=== PATIENT | male | born 1970 | race Caucasian/White ===

== ENCOUNTER 2021-03-03 08:28 | Inpatient (IN) | payer MEDICARE, OTHER ==
[~2021-03-03] VITALS: Ht 180.3 cm; Wt 158.6 kg
--- NOTE | 2021-03-03 08:57 | ED General ---
General Chief Complaint: Cough/Cold/Flu Symptoms Stated Complaint: COUGH; LOW O2 Source of Information: Patient History of Present Illness Date Seen by Provider: Mar 03, 2021 Time Seen by Provider: 08:32 Initial Comments 50-year-old male presenting with complaints of cough and shortness of breath. He states he has had nausea all night as well. He has been around his daughters who have been sick since last week. He started getting sick yesterday. He had tried using Flonase and states that ever since then he has been sick. He has been coughing and short of breath. He had no fever but has had chills all night. He states that his daughters were tested last week for strep throat and Covid but were negative. He had gone to urgent care this morning and they told him his oxygen level was low and he had to come to the emergency department. He states he recently moved here and has not established with a primary care physician. He does have a history of obesity and hypertension. He is not currently taking any medications. He does report having a history of pneumonia that he believes he contracted because of using an inhaler for asthma. He denies any allergies to medications. Timing/Duration: 1 Day Severity: Moderate Modifying Factors: worse with Movement Associated Systoms: No Chest Pain; Cough; No Diaphoresis; Fever/Chills (no fever but having chills); No Headaches; Malaise, Nausea/Vomiting (nausea but no vomiting); No Rash, No Seizure; Shortness of Air; No Syncope, No Weakness Allergies and Home Medications Allergies Coded Allergies: No Known Drug Allergies (Unverified , 03/03/21) Patient Home Medication List Home Medication List Reviewed: Yes Hydrocodone/Acetaminophen (Hydrocodone-Acetamin 10-325 mg) 1 Each Tablet, 1 EACH PO QID PRN for PAIN-MODERATE (5-7), (Reported) Entered as Reported by: YANG FLORES on 03/03/21 4371 Last Action: Reviewed Review of Systems Review of Systems Constitutional: chills; No fever EENTM: nose congestion; No epistaxis Respiratory: cough, dyspnea on exertion, phlegm, short of breath; No stridor; wheezing Cardiovascular: No chest pain; palpitations Gastrointestinal: nausea; No vomiting Genitourinary: No dysuria Musculoskeletal: muscle pain (generalized body aches) Skin: No rash Psychiatric/Neurological: Anxiety Past Avywqgm-Ulbrbz-Ksthab Hx Patient Social History Tobacco Use?: No Use of E-Cig and/or Vaping dev: No Substance use?: No Alcohol Use?: No Pt feels they are or have been: No Immunizations Up To Date First/Initial COVID19 Vaccinat: May 2020 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 oz. kg; BMI Method: General Appearance: Moderate Distress, Obese HEENT: PERRL/EOMI, Moist Mucous Membranes, Pharyngeal Erythema; No Photophobia, No Tonsillar Exudate, No Tonsillar Enlargement Neck: Full Range of Motion, Normal Inspection, Non Tender, Supple Respiratory: Chest Non Tender, Accessory Muscle Use, Decreased Breath Sounds Cardiovascular: Normal Peripheral Pulses, Tachycardia Gastrointestinal: Normal Bowel Sounds, No Pulsatile Mass, Non Tender, Soft Rectal: Deferred Extremity: Normal Capillary Refill, Normal Inspection, Pedal Edema (1+ BLE) Neurologic/Psychiatric: Alert, Oriented x3, medical program specialist II-XII Norm as Tested Skin: Normal Color, Warm/Dry Focused Exam Lactate Level 03/03/21 08:40: Lactic Acid Level 1.51 Lactic Acid Level Laboratory Tests Test 03/03/21 08:40 Lactic Acid Level 1.51 MMOL/L (0.50-2.00) Progress/Results/Core Measures Suspected Sepsis SIRS Temperature: Pulse: Respiratory Rate: Laboratory Tests 03/03/21 08:40: White Blood Count 12.7H Blood Pressure / Mean: 03/03/21 08:40: Lactic Acid Level 1.51 Laboratory Tests 03/03/21 08:40: Creatinine 0.97, INR Comment 1.0, Platelet Count 310, Total Bilirubin 0.6 Results/Orders Lab Results Laboratory Tests Test 03/03/21 08:40 03/03/21 08:45 03/03/21 09:17 Range/Units White Blood Count 12.7 H 4.3-11.0 10^3/uL Red Blood Count 4.53 4.30-5.52 10^6/uL Hemoglobin 13.9 13.3-17.7 g/dL Hematocrit 42 40-54 % Mean Corpuscular Volume 93 80-99 fL Mean Corpuscular Hemoglobin 31 25-34 pg Mean Corpuscular Hemoglobin Concent 33 32-36 g/dL Red Cell Distribution Width 13.4 10.0-14.5 % Platelet Count 310 130-400 10^3/uL Mean Platelet Volume 9.4 9.0-12.2 fL Immature Granulocyte % (Auto) 1 % Neutrophils (%) (Auto) 91 H 42-75 % Lymphocytes (%) (Auto) 3 L 12-44 % Monocytes (%) (Auto) 5 0-12 % Eosinophils (%) (Auto) 0 0-10 % Basophils (%) (Auto) 0 0-10 % Neutrophils # (Auto) 11.6 H 1.8-7.8 X 10^3 Lymphocytes # (Auto) 0.4 L 1.0-4.0 X 10^3 Monocytes # (Auto) 0.6 0.0-1.0 X 10^3 Eosinophils # (Auto) 0.0 0.0-0.3 10^3/uL Basophils # (Auto) 0.0 0.0-0.1 10^3/uL Immature Granulocyte # (Auto) 0.1 0.0-0.1 10^3/uL Neutrophils % (Manual) 74 % Lymphocytes % (Manual) 2 % Monocytes % (Manual) 6 % Eosinophils % (Manual) 0 % Basophils % (Manual) 0 % Band Neutrophils 16 % Atypical Lymphocytes 2 % Platelet Estimate NORMAL Macrocytosis 1+ Prothrombin Time 13.6 12.2-14.7 SEC INR Comment 1.0 0.8-1.4 Activated Partial Thromboplast Time 28 24-35 SEC D-Dimer 0.41 0.00-0.49 UG/ML Sodium Level 136 135-145 MMOL/L Potassium Level 3.9 3.6-5.0 MMOL/L Chloride Level 99 98-107 MMOL/L Carbon Dioxide Level 23 21-32 MMOL/L Anion Gap 14 5-14 MMOL/L Blood Urea Nitrogen 9 7-18 MG/DL Creatinine 0.97 0.60-1.30 MG/DL Estimat Glomerular Filtration Rate 81 BUN/Creatinine Ratio 9 Glucose Level 144 H 70-105 MG/DL Lactic Acid Level 1.51 0.50-2.00 MMOL/L Calcium Level 9.4 8.5-10.1 MG/DL Corrected Calcium 9.2 8.5-10.1 MG/DL Total Bilirubin 0.6 0.1-1.0 MG/DL Aspartate Amino Transf (AST/SGOT) 28 5-34 U/L Alanine Aminotransferase (ALT/SGPT) 34 0-55 U/L Alkaline Phosphatase 99 40-136 U/L Troponin I < 0.30 <0.30 NG/ML C-Reactive Protein 5.45 H <0.50 MG/DL Pro-B-Type Natriuretic Peptide 126.0 H <75.0 PG/ML Total Protein 8.3 H 6.4-8.2 GM/DL Albumin 4.3 3.2-4.5 GM/DL Influenza Type A Antigen POSITIVE H NEGATIVE Influenza Type B Antigen NEGATIVE NEGATIVE Blood Gas Puncture Site LT RADIAL Blood Gas Patient Temperature 37.4 Arterial Blood pH 7.41 7.37-7.43 Arterial Blood Partial Pressure CO2 42 35-45 MMHG Arterial Blood Partial Pressure O2 51 L 79-93 MMHG Arterial Blood HCO3 27 23-27 MMOL/L Arterial Blood Total CO2 27.9 21.0-31.0 MMOL/L Arterial Blood Oxygen Saturation 86 L 94-100 % Arterial Blood Base Excess 1.7 -2.5-2.5 MMOL/L Sudeep Test YES-POS Blood Gas Ventilator Setting NO Blood Gas Inspired Oxygen ROOM AIR My Orders Orders - EMANUEL OVALLES MD Monitor-Rhythm Ecg Trace Only (03/03/21 08:46) Ed Iv/Invasive Line Start (03/03/21 08:46) Cbc With Automated Diff (03/03/21 08:46) Comprehensive Metabolic Panel (03/03/21 08:46) Crp Fs (03/03/21 08:46) Troponin I Fs (03/03/21 08:46) Protime With Inr (03/03/21 08:46) Partial Thromboplastin Time (03/03/21 08:46) Ekg Tracing (03/03/21 08:46) Arterial Blood Gas (03/03/21 08:46) Ns Iv 1000 Ml (Sodium Chloride 0.9%) (03/03/21 09:00) Ondansetron Injection (Zofran Injectio (03/03/21 09:00) Chest 1 View Ap/Pa Only (03/03/21 08:46) Fibrin Degradation Products (03/03/21 08:46) Probnp Fs (03/03/21 08:46) Influenza A & B Antigens (03/03/21 08:46) Blood Culture (03/03/21 08:46) Lactic Acid Analyzer (03/03/21 08:46) Manual Differential (03/03/21 08:40) Oseltamivir 75 Mg Capsule (Tamiflu 75 (03/03/21 09:55) Ns Iv 1000 Ml (Sodium Chloride 0.9%) (03/03/21 09:55) Ed Admission (Communication) (03/03/21 10:07) Medications Given in ED Current Medications Medications Dose Ordered Sig/Bertram Route Start Time Stop Time Status Last Admin Dose Admin Ondansetron HCl 4 mg ONCE ONCE IV 03/03/21 09:00 03/03/21 09:01 DC 03/03/21 09:02 4 MG Vital Signs/I&O 03/03/21 03/03/21 08:36 11:00 Temp 38.1 Pulse 126 121 Resp 29 30 B/P (MAP) 118/64 (82) 119/82 Pulse Ox 93 94 O2 Delivery Room Air Nasal Cannula O2 Flow Rate 2.00 Capillary Refill : Progress Note #1: Progress Note Obtain basic labs as well as chest x-ray, electrocardiogram, cardiac enzymes, ABG, influenza swab, Covid swab. Sputum culture if he coughs anything up. For his tachycardia try giving IV fluids for hydration. Will obtain a D-dimer to e valuate for possible blood clot with his tachycardia and borderline oxygen saturation of 92 to 94% on room air. Differential diagnosis includes Covid, pneumonia, influenza, pulmonary embolism, congestive heart failure, myocardial infarction Progress Note #2: Time: 09:18 Progress Note CBC shows an elevated white blood cell count of 12.7 with a left shift. He has sinus tachycardia on electrocardiogram and on cardiac telemetry monitoring. His chest x-ray shows poor inspiratory effort with large body habitus and bilateral patchy infiltrate versus atelectasis in the bases. His D-dimer is negative at 0.4. Progress Note #3: Time: 10:04 Progress Note Influenza A came back positive for the patient. His ABG was showing hypoxia with a normal pH. His pH was 7.41 with PCO2 of 42 and PO2 of 51. His resulting O2 saturation was 88% on room air. He did decrease his oxygen saturation down to 84% on room air and had to be placed on supplemental oxygen. He is on 2 L/min by nasal cannula and this is helped recent 93 to 94%. He did have a negative troponin less than 0.3. His glucose was slightly elevated at 144. His lactic acid was normal 1.5. He had other electrolytes that were stable without acute significant normality but he did have mild elevation of the CRP. The patient was advised of the need for admission since he was hypoxic and had influenza A. He was infectious and with his other family members may have it as well. He will be started on Tamiflu as well as additional fluids. He initially was questioning why he needed to be admitted and why he could not stay locally. I tried to explain to him that there was not a hospital in [place] and he would have to go to an actual hospital to get oxygen and treatment. He states that he does have oxygen at home because he helps to care for his gszucc-kp-zqf who is bedridden. However the oxygen is not for him it is for his yncusl-yr-evk. Discussed with Dr. Yadav as the hospitalist on-call and she accepted the patient for admission since it was an unassigned patient with no local provider. She requested ICU admission since he had high BMI, history of hypertension, current influenza A, hypoxia and was risk of decompensating. Will update the eICU provider so they are aware of the patient. [phone] call placed to eICU to try and reach the eICU provider at [facility]. I was informed that they were rounding currently and so I left my name and number so they could call back and I could give them some information about the patient prior to his transfer to ICU 3 at [facility]. Progress Note #4: Time: 10:36 Progress Note [facility] eICU physician called back and I reviewed with her the case and gave her some information about the patient so she would have some idea of the case when he arrives in [facility] ICU 3. ECG Initial ECG Impression Date: Mar 03, 2021 Initial ECG Impression Time: 09:03 Initial ECG Rate: 118 Initial ECG Rhythm: S.Tach Initial ECG Comparisson: No Previous ECG Available Comment Sinus tachycardia with a heart rate of 118 bpm. NV interval [address] elevation. Consider right ventricular hypertrophy. QT interval 303 ms with a QTc interval 425 ms. There is no prior tracing available for comparison. Diagnostic Imaging Diagonstic Imaging: Xray Plain Films/CT/US/NM/MRI: chest Comments NAME: DEYANIRA LOMAS [facility] REC#: [id number] PT STATUS: REG ER : 1970 PHYSICIAN: EMANUEL OVALLES MD ADMIT DATE: 03/03/21/ER FS Draft Date of Exam:03/03/21 CHEST 1 VIEW AP/PA ONLY Clinical indications: Patient with cough and shortness of breath. Exam: Portable chest x-ray upright view. Comparisons: None. Findings: Lungs/pleura: There is mild curvilinear and patchy airspace opacities involving both lung bases which may represent atelectasis versus infiltrate. There is no pneumothorax. There is no pleural effusion. Mediastinum: Unremarkable. Pulmonary vasculature: Unremarkable. Heart: There is upper limits of normal heart size for portable projection. Suspected mildly prominent pericardial fat. Bones/extrathoracic soft tissue: Unremarkable. Impression: There is mild bibasilar atelectasis versus infiltrates. If necessary, chest x-ray PA and lateral views with good respiratory effort may help better evaluate. Dictated on workstation # [id number] Dict: 03/03/21908 Trans: 03/03/21910 [facility] [id number] Interpreted by: MARICHUY CAMACHO MD Electronically signed by: Reviewed: Reviewed by Me Departure Communication (Admissions) Time/Spoke to Admitting Phy: 10:[address] Yadav as the hospitalist on-call today. Patient has no primary care doctor locally. He is positive for influenza A and Covid is pending. His tests are showing hypoxia both on monitoring as well as by ABG. A dose of Tamiflu was ordered as well as additional fluids. Will monitor in the ICU initially with his morbid obesity and history of hypertension Impression Primary Impression: Influenza A Additional Impressions: Cough Shortness of breath Person under investigation for COVID-19 Hypoxemia Sinus tachycardia Disposition: 30 STILL A PATIENT Condition: Stable Admissions Decision to Admit Reason: Admit from ER (General) Decision to Admit/Date: Mar 03, 2021 Time/Decision to Admit Time: 10:04 Departure-Patient Inst. Referrals: NO,LOCAL PHYSICIAN (PCP/Family) Primary Care Physician EMANUEL OVALLES MD Mar 03, 2021 08:57
[2021-03-03] MEDS ORDERED: NS IV 1000 ML 1,000 ML IV SCH (09:00)
[2021-03-03] MEDS ORDERED: ONDANSETRON 4 MG/2 ML (SDV) Z0FRAN IV ONE (09:00)
[2021-03-03 09:06] LABS: BASOPHILS % (AUTO) 0 % (0-10); EOSINOPHILS % (AUTO) 0 % (0-10); HEMATOCRIT 42 % (40-54); HEMOGLOBIN 13.9 g/dL (13.3-17.7); LYMPHOCYTES # (AUTO) 0.4 X 10^3 (1.0-4.0); LYMPHOCYTES % (AUTO) 3 % (12-44); MEAN CORPUSCULAR HEMOGLOBIN 31 pg (25-34); MEAN CORPUSCULAR HGB CONC 33 g/dL (32-36); MEAN CORPUSCULAR VOLUME 93 fL (80-99); MEAN PLATELET VOLUME 9.4 fL (9.0-12.2); MONOCYTES # (AUTO) 0.6 X 10^3 (0.0-1.0); MONOCYTES % (AUTO) 5 % (0-12); NEUTROPHILS # (AUTO) 11.6 X 10^3 (1.8-7.8); NEUTROPHILS % (AUTO) 91 % (42-75); PLATELET COUNT 310 10^3/uL (130-400); PROTHROMBIN TIME PATIENT 13.6 SEC (12.2-14.7); WHITE BLOOD COUNT 12.7 10^3/uL (4.3-11.0)
--- NOTE | 2021-03-03 09:12 | Diagnostic Imaging Report ---
Clinical indications: Patient with cough and shortness of breath. Exam: Portable chest x-ray upright view. Comparisons: None. Findings: Lungs/pleura: There is mild curvilinear and patchy airspace opacities involving both lung bases which may represent atelectasis versus infiltrate. There is no pneumothorax. There is no pleural effusion. Mediastinum: Unremarkable. Pulmonary vasculature: Unremarkable. Heart: There is upper limits of normal heart size for portable projection. Suspected mildly prominent pericardial fat. Bones/extrathoracic soft tissue: Unremarkable. Impression: There is mild bibasilar atelectasis versus infiltrates. If necessary, chest x-ray PA and lateral views with good respiratory effort may help better evaluate. Dictated by: Dictated on workstation # [id number]
[2021-03-03 09:28] LABS: ALKALINE PHOSPHATASE 99 U/L (40-136); BILIRUBIN,TOTAL 0.6 MG/DL (0.1-1.0); BUN/CREATININE RATIO 9; CALCIUM 9.4 MG/DL (8.5-10.1); CARBON DIOXIDE 23 MMOL/L (21-32); CHLORIDE 99 MMOL/L (98-107); CREATININE SERUM 0.97 MG/DL (0.60-1.30); GFR ESTIMATED 81; GLUCOSE 144 MG/DL (70-105); POTASSIUM 3.9 MMOL/L (3.6-5.0); SODIUM 136 MMOL/L (135-145)
[2021-03-03 09:29] LABS: ALANINE AMINOTRANSFERASE 34 U/L (0-55); ALBUMIN 4.3 GM/DL (3.2-4.5); TOTAL PROTEIN 8.3 GM/DL (6.4-8.2)
[2021-03-03 09:31] LABS: ABG BASE EXCESS 1.7 MMOL/L (-2.5-2.5); ABG OXYGEN SATURATION 86 % (94-100); ABG PCO2 42 MMHG (35-45); ABG PH 7.41 (7.37-7.43); ABG PO2 51 MMHG (79-93); ABG TCO2 27.9 MMOL/L (21.0-31.0)
[2021-03-03 09:32] LABS: ALLENS TEST YES-POS; INSPIRED O2 ROOM AIR
[2021-03-03 09:33] LABS: PATIENT TEMP 37.4; VENTILATOR NO
[2021-03-03 09:43] LABS: BAND NEUTROPHILS 16 %; LYMPHOCYTES % (MANUAL) 2 %; MONOCYTES % (MANUAL) 6 %; NEUTROPHILS % (MANUAL) 74 %
[2021-03-03 09:44] LABS: ATYPICAL LYMPHOCYTES 2 %; BASOPHILS % (MANUAL) 0 %; EOSINOPHILS % (MANUAL) 0 %; PLATELET ESTIMATE NORMAL
[2021-03-03] MEDS ORDERED: OSELTAMIVIR 75 MG (TAMIFLU) CAPSULE PO STA (09:55)
[2021-03-03] MEDS ORDERED: NS IV 1000 ML 1,000 ML IV STA (09:55)
[2021-03-03] MEDS ORDERED: morphine INJ 10 MG/ML 1ML (SYR OR VIAL) IVP PRN (12:00)
[2021-03-03] MEDS ORDERED: ENOXAPARIN 40 MG/0.4 ML (LOVENOX) SYR SC SCH (12:00)
[2021-03-03] MEDS ORDERED: ACETAMINOPHEN 325 MG TABLET ONE (12:08)
[2021-03-03] MEDS ORDERED: NS IV 1000 ML 1,000 ML ONE (12:09)
[2021-03-03] MEDS: NS IV 1000 ML 1,000 ML IV SCH ×3 (12:13→23:22)
[2021-03-03] MEDS: ACETAMINOPHEN 325 MG TABLET PO PRN ×2 (12:13→18:26)
[2021-03-03] MEDS ORDERED: HYDROcodone/APAP 5 MG/325 MG (LORTAB) TAB ONE (12:17)
[2021-03-03] MEDS ORDERED: morphine INJ 4 MG/ML 1 ML (VIAL/SYRINGE) ONE (12:17)
[2021-03-03 13:53] VITALS: BP 119/82
[2021-03-03] MEDS ORDERED: RT-ALBUTEROL/IPRATROPIUM 3 ML (DUONEB) VIAL INH PRN (14:15)
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
[2021-03-03] MEDS ORDERED: HYDR-3820 PO (15:25)
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
[2021-03-03] MEDS: RT-ALBUTEROL/IPRATROPIUM 3 ML (DUONEB) VIAL INH SCH ×2 (19:26→21:28)
[2021-03-03] MEDS: ENOXAPARIN 40 MG/0.4 ML (LOVENOX) SYR SC SCH (20:28)
[2021-03-03] MEDS: FAMOTIDINE 20 MG (PEPCID) TABLET PO SCH (20:28)
[2021-03-03] MEDS: OSELTAMIVIR 75 MG (TAMIFLU) CAPSULE PO SCH (20:28)
[2021-03-04] MEDS: RT-ALBUTEROL/IPRATROPIUM 3 ML (DUONEB) VIAL INH SCH ×6 (03:10→21:59)
[2021-03-04 06:37] LABS: BASOPHILS % (AUTO) 0 % (0-10); EOSINOPHILS % (AUTO) 0 % (0-10); HEMATOCRIT 40 % (40-54); HEMOGLOBIN 12.5 g/dL (13.3-17.7); LYMPHOCYTES # (AUTO) 0.7 10^3/uL (1.0-4.0); LYMPHOCYTES % (AUTO) 9 % (12-44); MEAN CORPUSCULAR HEMOGLOBIN 31 pg (25-34); MEAN CORPUSCULAR HGB CONC 31 g/dL (32-36); MEAN CORPUSCULAR VOLUME 99 fL (80-99); MEAN PLATELET VOLUME 9.2 fL (9.0-12.2); MONOCYTES # (AUTO) 0.5 10^3/uL (0.0-1.0); MONOCYTES % (AUTO) 8 % (0-12); NEUTROPHILS # (AUTO) 5.9 10^3/uL (1.8-7.8); NEUTROPHILS % (AUTO) 83 % (42-75); PLATELET COUNT 224 10^3/uL (130-400); WHITE BLOOD COUNT 7.1 10^3/uL (4.3-11.0)
[2021-03-04 06:55] LABS: ALBUMIN 3.5 GM/DL (3.2-4.5); BILIRUBIN,TOTAL 0.5 MG/DL (0.1-1.0); CALCIUM 8.5 MG/DL (8.5-10.1); CREATININE SERUM 0.79 MG/DL (0.60-1.30); POTASSIUM 4.1 MMOL/L (3.6-5.0); TOTAL PROTEIN 6.8 GM/DL (6.4-8.2)
[2021-03-04] MEDS: FAMOTIDINE 20 MG (PEPCID) TABLET PO SCH ×2 (09:37→20:03)
[2021-03-04] MEDS: ACETAMINOPHEN 325 MG TABLET PO PRN ×2 (09:37→20:04)
[2021-03-04] MEDS: OSELTAMIVIR 75 MG (TAMIFLU) CAPSULE PO SCH ×2 (09:37→20:03)
[2021-03-04] MEDS: ENOXAPARIN 40 MG/0.4 ML (LOVENOX) SYR SC SCH ×2 (09:37→20:03)
--- NOTE | 2021-03-04 12:28 | Progress Note - Hospitalist ---
JORGE VILLEGAS 03/04/21 1228: Subjective HPI/CC On Admission Date Seen by Provider: Mar 04, 2021 Time Seen by Provider: 08:10 CC: Influenza A with hypoxia and tachycardia HPI: This is a pt who has no physician who presents with fever and SOB and cough to the [facility] ER, pt was found to be influenza A positive and Covid was negative. Tachycardia has been much improved with IV fluids. He reports not really seeing any doctor for a long time and he appears to have morbid obesity at 400lbs and appears to have some THANIA. He will be placed in the ICU for close monitoring and transfer down to the 4th floor. Tamiflu was started. Subjective/Events-last exam Patient moved from ICU to 4th floor. Patient states he feels better today than yesterday. Feels he is able to breath better. Still coughing, but not productive anymore. Did have some night sweats, but fever remains under control. Patient still complaining of headache. Patient is using IS and has seen improvements. Patient has not had a bowel movement yet, but denies dysuria. His chronic pain is well controlled. Patient has in-home health for his step-mother and is worried about if he is still contagious or not. Patient has not been OOB yet, will plan on today. Review of Systems General: No Chills; Night Sweats HEENT: Head Aches; No Visual Changes Pulmonary: Cough Cardiovascular: No: Chest Pain, Palpitations Gastrointestinal: No: Nausea, Vomiting, Diarrhea, Constipation Genitourinary: No Dysuria Neurological: No: Weakness Focused Exam Lactate Level 03/03/21 08:40: Lactic Acid Level 1.51 Objective Exam Vital Signs Vital Signs Date Time Temp Pulse Resp B/P (MAP) Pulse Ox O2 Delivery O2 Flow Rate FiO2 03/04/21 10:49 95 Nasal Cannula 2.00 03/04/21 08:00 36.8 18 134/70 03/04/21 03:39 96 03/03/21 13:53 28 Capillary Refill : Less Than 3 Seconds General Appearance: No Apparent Distress, Obese Respiratory: No Accessory Muscle Use, No Respiratory Distress, Decreased Breath Sounds, Wheezing Cardiovascular: Regular Rate, Rhythm, Normal Peripheral Pulses Rectal: Deferred Neurologic/Psychiatric: Alert, Oriented x3, Normal Mood/Affect Results/Procedures Lab Laboratory Tests 03/04/21 06:15 Patient resulted labs reviewed. Imaging: Reviewed Imaging Films Assessment/Plan Assessment and Plan Assess & Plan/Chief Complaint Assessment Influenza A Sepsis Acute Respiratory failure - resolved Fever Chronic Pain Hyperglycemia Tachycardia - resolved HTN Plan Tamiflu Oxygen support IV Fluids Tylenol PRN Pain management Duoneb breathing treatments Lovenox for DVT prophylaxis Monitor Labs MALGORZATA MCCARTHY DO 03/05/21 0506: Subjective Subjective/Events-last exam Pt doing alot better Heplocking IV fluid Fever is down Dry cough is noted PT and OT will be ordered Checked O2 sat Review of Systems General: Fatigue, Malaise Pulmonary: Dyspnea, Cough Objective Exam General Appearance: No Apparent Distress, WD/WN, Chronically ill, Obese Respiratory: Decreased Breath Sounds, Wheezing Cardiovascular: Regular Rate, Rhythm Neurologic/Psychiatric: Alert, Oriented x3 Assessment/Plan Assessment and Plan Assess & Plan/Chief Complaint Tamiflu Hep-Lock IV fluid PT and OT Supervisory-Addendum Brief Verification & Attestation Participated in pt care: history, MDM, physical Personally performed: exam, history, MDM, supervision of care Care discussed with: Medical Student Procedures: n/a Results interpretation: Verified all documentation Verification and Attestation of Medical Student E/M Service A medical student performed and documented this service in my presence. I reviewed and verified all information documented by the medical student and made modifications to such information, when appropriate. I personally performed the physical exam and medical decision making. Malgorzata Mccarthy, Mar 05, 2021,05:05 JORGE VILLEGAS Mar 04, 2021 12:28 MALGORZATA MCCARTHY DO Mar 05, 2021 05:06
--- NOTE | 2021-03-04 14:43 | Occupational Therapy Eval ---
OT Evaluation-General/PLF Medical Diagnosis Admission Date Mar 03, 2021 at 11:54 Medical Diagnosis: Influenza A Onset Date: Mar 03, 2021 Therapy Diagnosis Therapy Diagnosis: n/a Precautions Precautions/Isolations: Droplet Isolation, Fall Prevention, Pressure Ulcer Referral Physician: Leif Medical History Current History presents to icu from [facility] ED. c/o productive cough and sore throat Social History Current Living Status: Spouse ADL-Prior Level of Function SCALE: Activities may be completed with or without assistive devices. 5-Enukxwioae-xdsclnh completes the activity by him/herself with no assistance from a helper. 5-Set-up or Clean-up Assistance-helper sets up or cleans up; patient completes activity. [place] assists only prior to or following the activity. 4-Supervision or Touching Assistance-helper provides verbal cues and/or touchin g/steadying and/or contact guard assistance as patient completes activity. Assistance may be provided throughout the activity or intermittently. 3-Partial/Moderate Assistance-helper does LESS THAN HALF the effort. [place] lifts, holds or supports trunk or limbs, but provides less than half the effort. 2-Substantial/Maximal Assistance-helper does MORE THAN HALF the effort. [place] lifts or holds trunk or limbs and provides more than half the effort. 8-Gpvpxdmro-csevzl does ALL the effort. Patient does none of the effort to complete the activity. Or, the assistance of 2 or more helpers is required for the patient to complete the activity. If activity was not attempted, code reason: 7-Patient Refused. 9-Not Applicable-not attempted and the patient did not perform the activity before the current illness, exacerbation or injury. 10-Not Attempted due to Environmental Limitations-(lack of equipment, weather restraints, etc.). 88-Not Attempted due to Medical Conditions or Safety Concerns. ADL PLOF Comments Pt reports requiring some assistance with ADLs at PLOF. He requires assistance with LE dressing and footwear, and washing LEs. he uses a cane for functional mobility. Self Care: Needed Some Help Functional Cognition: Independent OT Current Status Subjective Pt laying in bed, agreeable to OT tx. Mental Status/Objective Patient Orientation: Person, Place, Time, Situation Attachments: Oxygen (2L at start of session, RA post tx) Current Upper Extremity ROM WFL Upper Extremity Strength grossly 4/5 ADL-Treatment Eating (QC): 6 (Per pt report.) Oral Hygiene (QC): 6 (Per clincial judgement) Lower Body Dressing (QC): 6 (Pt doffed pants independently) On/Off Footwear (QC): 6 (pt doffed footwear independently.) Other Treatments Pt laying in bed, agreeable to OT tx. Pt provided information about PLOF and home set up, and participated in UE screen. Pt transferred supine to sit EOB independently. In order to increase BUE strength and activity tolerance and to increase pulmonary function, pt instructed on UE exercises. Pt completed x10 reps each of the following: shoulder flexion, elbow flexion/extension, and front punch. Pt requests to take a shower, OT covered pt's IV. Pt's nurse present, states pt OK to take off O2 NC in order to go into the bathroom and complete shower. Pt stood up and walked into the bathroom independently, requests to have BM. Pt able to doff socks and pants. Post tx, pt seated on toilet, all needs met, nursing staff present in room. Pt instructed to pull call light cord in bathroom if he needs anything. All needs met. Education OT Patient Education: Correct positioning, Energy conservation, Exercise program, Modified ADL techniques, Progress toward Goal/Update tx plan, Purpose of tx/functional activities, Rehab process Teaching Recipient: Patient Teaching Methods: Discussion Response to Teaching: Verbalize Understanding OT Long-Term Goals Sec Accountant Goals 1=Demonstrate adherence to instructed precautions during ADL tasks. 2=Patient will verbalize/demonstrate understanding of assistive devices/modifications for ADL. 3=Patient will improve strength/tolerance for activity to enable patient to perform ADL's. OT Education/Plan Problem List/Assessment Assessment: No Skilled OT Needs ID'd No skilled OT services indicated at this time, as pt is at PLOF with ADLs and functional mobility, pt has no concerns with ADL function upon discharging. D/C from OT Discharge Recommendations Plan/Recommendations: Discharge/Goals Met Therapy Discharge Recommendati: Home & Family Treatment Plan/Plan of Care Patient would benefit from OT for education, treatment and training to promote independence in ADL's, mobility, safety and/or upper extremity function for ADL's. Plan of Care: ADL Retraining, Functional Mobility, UE Funct Exercise/Act Treatment Duration: Mar 04, 2021 Frequency: 1 time per week (eval only) Estimated Hrs Per Day: .5 hour per day Rehab Potential: Good Time/GCodes Start Time: 13:40 Stop Time: 13:56 Total Time Billed (hr/min): 16 Billed Treatment Time 1, OFE BROWN OT Mar 04, 2021 14:43
--- NOTE | 2021-03-04 15:21 | Physical Therapy Evaluation ---
PT Evaluation-General Medical Diagnosis Admission Date Mar 03, 2021 at 11:54 Medical Diagnosis: Influenza A Onset Date: Mar 03, 2021 Therapy Diagnosis Therapy Diagnosis: independent with mobility Precautions Precautions/Isolations: Droplet Isolation, Fall Prevention, Pressure Ulcer Referral Physician: Malgorzata Yadav DO Reason for Referral: Evaluation/Treatment Medical History Pertinent Medical History: HTN Additional Medical History chronic back pain Reviewed History: Yes Social History Home: Single Level Current Living Status: Spouse Entry Into Home: Stairs With Railing PT Steps Into Home: 2 Prior Prior Level of Function SCALE: Activities may be completed with or without assistive devices. 1-Wvrimnbbxt-gqaciif completes the activity by him/herself with no assistance from a helper. 5-Set-up or Clean-up Assistance-helper sets up or cleans up; patient completes activity. [place] assists only prior to or following the activity. 4-Supervision or Touching Assistance-helper provides verbal cues and/or touching/steadying and/or contact guard assistance as patient completes activity. Assistance may be provided throughout the activity or intermittently. 3-Partial/Moderate Assistance-helper does LESS THAN HALF the effort. [place] lifts, holds or supports trunk or limbs, but provides less than half the effort. 2-Substantial/Maximal Assistance-helper does MORE THAN HALF the effort. [place] lifts or holds trunk or limbs and provides more than half the effort. 4-Rjybzjyca-zybsqq does ALL the effort. Patient does none of the effort to complete the activity. Or, the assistance of 2 or more helpers is required for the patient to complete the activity. If activity was not attempted, code reason: 7-Patient Refused. 9-Not Applicable-not attempted and the patient did not perform the activity before the current illness, exacerbation or injury. 10-Not Attempted due to Environmental Limitations-(lack of equipment, weather restraints, etc.). 88-Not Attempted due to Medical Conditions or Safety Concerns. Bed Mobility: 6 Transfers (B,C,W/C): 6 Gait: 6 Stairs: 6 Indoor Mobility (Ambulation): Independent Stairs: Independent Prior Device Use: SPC PT Evaluation-Current Subjective Patient in bed pre tx, agrees to PT, states he always has severe low back pain. Pt/Family Goals to be independent at home Objective Patient Orientation: Person, Place, Situation Attachments: Oxygen ROM/Strength ROM Lower Extremities WNL Strength Lower Extremities LLE grossly 4/5, RLE not tested, patient states it would hurt too much Sensory Vision: Functional Hearing: Functional Sensation Right Lower Extremit: Impaired Sensation Left Lower Extremity: Impaired Sensation Lower Extremities Patient seems to have intact light touch sensation in both LE but he states he has numbness. Transfers Roll Left to Right (QC): 6 Sit to Lying (QC): 6 Lying to Sitting/Side of Bed(Q: 6 Sit to Stand (QC): 6 Chair/Uld-ly-Wjtdk Xfer(QC): 6 Gait Does the Patient Walk?: Yes Mode of Locomotion: Walk Anticipated Mode of Locomotion: Walk Walk 10 feet (QC): 6 Distance: 20' Gait Assistive Device: None Comments/Gait Description steady, independent ambulation, just has a slight limp because of his previous right leg injury Balance Sitting Static: Normal Sitting Dynamic: Normal Standing Static: Normal Standing Dynamic: Good Assessment/Needs Patient in bed post tx with nurse call, phone, tray, all needs met. Patient is independent with transfers and ambulation, he will be discharged from PT at this time. Rehab Potential: Good PT Plan Treatment/Plan Treatment Plan: Discontinue PT Treatment Duration: Mar 04, 2021 Frequency: Safety Risks/Education Patient Education: Gait Training, Transfer Techniques, Correct Positioning, Safety Issues Teaching Recipient: Patient Teaching Methods: Demonstration, Discussion Response to Teaching: Verbalize Understanding, Return Demonstration Discharge Recommendations Plan DC Therapy Discharge Recommendati: Home & Family Time/GCodes Time In: 1504 Time Out: 1514 Total Billed Treatment Time: 10 Total Billed Treatment 1 visit [facility]JON PT Mar 04, 2021 15:20
[2021-03-05] MEDS: RT-ALBUTEROL/IPRATROPIUM 3 ML (DUONEB) VIAL INH SCH ×3 (02:28→10:45)
[2021-03-05 05:49] LABS: BASOPHILS % (AUTO) 0 % (0-10); EOSINOPHILS % (AUTO) 0 % (0-10); HEMATOCRIT 38 % (40-54); HEMOGLOBIN 12.2 g/dL (13.3-17.7); LYMPHOCYTES # (AUTO) 1.1 10^3/uL (1.0-4.0); LYMPHOCYTES % (AUTO) 19 % (12-44); MEAN CORPUSCULAR HEMOGLOBIN 31 pg (25-34); MEAN CORPUSCULAR HGB CONC 32 g/dL (32-36); MEAN CORPUSCULAR VOLUME 95 fL (80-99); MEAN PLATELET VOLUME 9.5 fL (9.0-12.2); MONOCYTES # (AUTO) 0.4 10^3/uL (0.0-1.0); MONOCYTES % (AUTO) 7 % (0-12); NEUTROPHILS # (AUTO) 4.1 10^3/uL (1.8-7.8); NEUTROPHILS % (AUTO) 73 % (42-75); PLATELET COUNT 208 10^3/uL (130-400); WHITE BLOOD COUNT 5.6 10^3/uL (4.3-11.0)
[2021-03-05] MEDS: ACETAMINOPHEN 325 MG TABLET PO PRN (05:51)
[2021-03-05 06:12] LABS: ALBUMIN 3.4 GM/DL (3.2-4.5); POTASSIUM 3.6 MMOL/L (3.6-5.0)
[2021-03-05 06:13] LABS: CALCIUM 8.3 MG/DL (8.5-10.1)
[2021-03-05 06:14] LABS: TOTAL PROTEIN 6.7 GM/DL (6.4-8.2)
[2021-03-05 06:16] LABS: BILIRUBIN,TOTAL 0.3 MG/DL (0.1-1.0)
[2021-03-05 06:18] LABS: CREATININE SERUM 0.78 MG/DL (0.60-1.30)
[2021-03-05] MEDS: FAMOTIDINE 20 MG (PEPCID) TABLET PO SCH (08:20)
[2021-03-05] MEDS: OSELTAMIVIR 75 MG (TAMIFLU) CAPSULE PO SCH (08:20)
[2021-03-05] MEDS: ENOXAPARIN 40 MG/0.4 ML (LOVENOX) SYR SC SCH (08:20)
[2021-03-05] MEDS ORDERED: OSLT75C PO ×2 (11:40→11:53)
--- NOTE | 2021-03-05 11:41 | Discharge Summary ---
Discharge Summary Hospital Course Was the Problem List Reviewed?: Yes Problems/Dx: (1) Influenza A (2) Cough Status: Acute (3) Hypoxemia Status: Acute Hospital Course Date of Admission: Mar 03, 2021 at 11:54 Admission Diagnosis : Family Physician/Provider: No,Local Physician Date of Discharge: 03/05/21 Discharge Diagnosis: Influenza A, sepsis, tachycardia, hypoxemia Hospital Course: Hospital Course: Pt had an uneventful observation course after he was admitted due to Influenza A with acute hypoxia and tachycardia. He did receive IV fluid resuscitation and oxygen supplementation and Tamiflu. He was deemed stable for DC without oxygen and to finish up his Tamiflu. Labs and Pending Lab Test: Laboratory Tests 03/05/21 05:05: White Blood Count 5.6, Red Blood Count 3.98L, Hemoglobin 12.2L, Hematocrit 38L, Mean Corpuscular Volume 95, Mean Corpuscular Hemoglobin 31, Mean Corpuscular Hemoglobin Concent 32, Red Cell Distribution Width 13.7, Platelet Count 208, Mean Platelet Volume 9.5, Immature Granulocyte % (Auto) 0, Neutrophils (%) (Auto) 73, Lymphocytes (%) (Auto) 19, Monocytes (%) (Auto) 7, Eosinophils (%) (Auto) 0, Basophils (%) (Auto) 0, Neutrophils # (Auto) 4.1, Lymphocytes # (Auto) 1.1, Monocytes # (Auto) 0.4, Eosinophils # (Auto) 0.0, Basophils # (Auto) 0.0, Immature Granulocyte # (Auto) 0.0, Sodium Level 138, Potassium Level 3.6, Chloride Level 103, Carbon Dioxide Level 23, Anion Gap 12, Blood Urea Nitrogen 9, Creatinine 0.78, Estimat Glomerular Filtration Rate 105, BUN/Creatinine Ratio 12, Glucose Level 126H, Calcium Level 8.3L, Corrected Calcium 8.8, Total Bilirubin 0.3, Aspartate Amino Transf (AST/SGOT) 25, Alanine Aminotransferase (ALT/SGPT) 33, Alkaline Phosphatase 63, Total Protein 6.7, Albumin 3.4 Microbiology 03/03/21 Blood Culture - Preliminary, Resulted No growth Home Meds Active Tamiflu (Oseltamivir Phosphate) 75 Mg Cap 75 Mg PO BID 3 Days Reported Hydrocodone-Acetamin 10-325 mg (Hydrocodone/Acetaminophen) 1 Each Tablet 1 Each PO QID PRN Assessment/Pt Instructions PCP in 1 week Discharge Planning: <30 minutes discharge planning Discharge Instructions Discharge Diet: No Restrictions Activity as Tolerated: Yes Discharge Physical Examination Vital Signs Vital Signs Date Time Temp Pulse Resp B/P (MAP) Pulse Ox O2 Delivery O2 Flow Rate FiO2 03/05/21 10:45 94 Room Air 03/05/21 08:00 36.5 97 20 146/81 03/05/21 08:00 94 03/04/21 15:45 2.00 General Appearance: No Apparent Distress, WD/WN, Chronically ill, Obese Respiratory: Lungs Clear Allergies: Coded Allergies: No Known Drug Allergies (Unverified , 03/03/21) Discharge Summary Date of Admission Mar 03, 2021 at 11:54 Date of Discharge Discharge Date: Mar 05, 2021 Admission Diagnosis Assessment: Acute influenza A Sepsis Hypoxia Tachycardia Morbid obesity Presumed THANIA/OHA Plan: IV fluids Tamiflu Discharge Diagnosis Tamiflu Hep-Lock IV fluid PT and OT FELIPE MCCARTHY DO Mar 05, 2021 11:41
[2021-03-05] MEDS ORDERED: RELABEL FOR HOME USE MC SCH (11:45)
[2021-03-05 13:07] VITALS: BP 129/87
--- NOTE | 2021-03-05 14:18 | Progress Note ---
JORGE VILLEGAS 03/05/21 1418: Progress Note Patient is a 50 year old male that was admitted to [facility] ICU on 03/03 with an admission diagnosis of influenza A and acute hypoxia. Patient's symptoms had been on-going for 24 hours. Chest x-ray show bibasilar atelectasis vs infiltrates. Patient was started on tamiflu, IV fluids, oxygen support, and duoneb breathing treatments. By 03/04 patient's clinical status had improved greatly. His lungs sounded much more clear. His IV fluids were D/C and he was transferred down to the Med/Surg floor at [facility]. On 03/05 Patient had improved enough to be discharged home. Patient is to continue tamiflu. The prescription was sent to [facility]. MAGLORZATA MCCARTHY DO 03/06/21 0629: Supervisory-Addendum Brief Verification & Attestation Participated in pt care: history, MDM, physical Personally performed: exam, history, MDM, supervision of care Care discussed with: Medical Student Procedures: n/a Results interpretation: Verified all documentation Verification and Attestation of Medical Student E/M Service A medical student performed and documented this service in my presence. I reviewed and verified all information documented by the medical student and made modifications to such information, when appropriate. I personally performed the physical exam and medical decision making. Malgorzata Mccarthy, Mar 06, 2021,06:29 JORGE VILLEGAS Mar 05, 2021 14:18 MALGORZATA MCCARTHY DO Mar 06, 2021 06:29
== END 2021-03-05 13:03 | disposition home or self-care (01) | DRG 871 ==
LOC: ER FS 08:30 → ICU 11:54 → 4TH 18:13
PROVIDERS: ADMIT Internal Medicine; ATTEND Internal Medicine
DX: A41.9 Sepsis, unspecified organism (principal); J96.01 Acute respiratory failure with hypoxia; Z68.42 Body mass index [BMI] 45.0-49.9, adult; J10.1 Influenza due to other identified influenza virus with other respiratory manifestations; E66.01 Morbid (severe) obesity due to excess calories; G47.33 Obstructive sleep apnea (adult) (pediatric); Z20.822 Contact with and (suspected) exposure to COVID-19; D72.829 Elevated white blood cell count, unspecified; G89.29 Other chronic pain; R73.9 Hyperglycemia, unspecified; I10 Essential (primary) hypertension; B34.9 Viral infection, unspecified
CPT/HCPCS: 36415; 71045; 80053; 82805; 83605; 83880; 84484; 85007; 85025; 85027; 85379; 85610; 85730; 86141; 87040; 87636; 87804; 93005; 93041; 93306; 94640; 94664; 94760; 99291

== ENCOUNTER 2021-07-28 08:06 | Emergency (ER) | payer MEDICARE ==
[~2021-07-28] VITALS: Ht 177 cm; Wt 158.6 kg
[~2021-07-28 08:06] MED LIST: HYDR-3820 PO; OSLT75C PO
[2021-07-28 08:45] LABS: BILIRUBIN,URINE NEGATIVE (NEGATIVE); CLARITY,URINE TURBID; COLOR,URINE YELLOW; GLUCOSE, URINE (UA) NEGATIVE (NEGATIVE); KETONES,URINE NEGATIVE (NEGATIVE); LEUKOCYTE ESTERASE ,URINE NEGATIVE (NEGATIVE); NITRITE,URINE NEGATIVE (NEGATIVE); PROTEIN,URINE TRACE (NEGATIVE)
[2021-07-28] MEDS ORDERED: NS IV 1000 ML 1,000 ML IV ONE (08:45)
[2021-07-28] MEDS ORDERED: ONDANSETRON 4 MG/2 ML (SDV) Z0FRAN IVP ONE (08:45)
[2021-07-28] MEDS ORDERED: KETOROLAC 30 MG/ML VIAL IVP ONE (08:45)
--- NOTE | 2021-07-28 08:46 | ED GU-Male ---
General Chief Complaint: - Reproductive Stated Complaint: TESTICULAR PAIN; VOMITING; LT LEG SWELLING Nursing Triage Note: PT HAS MANY VAGUE COMPLAINTS. "I'M HOT AND SWEATY. CAN YOU JUST GIVE ME SOMETHING TO MAKE ME SLEEP?" PT REPORTS RIGHT TESTICLE PAIN THIS AM. Source: patient Exam Limitations: no limitations History of Present Illness Date Seen by Provider: July 28, 2021 Time Seen by Provider: 08:22 Initial Comments Patient to the ER by private conveyance with his significant other chief complaint that he recently moved here and does not follow with a primary care doctor and woke up this morning with some right testicle pain couple hours prior to arrival. He feels like his testicle is swollen and he is having painful urination unable to empty his bladder. He has not had problems with prostate before. He had no urinary surgery. No fevers or chills but he does feel nauseated. He has not taken anything for the pain. He denies any history of diabetes, hypertension, hyperlipidemia etc. He is also noticed with a several roll last months he has had some increased swelling in his left leg. No history of blood clots, shortness of breath or chest pain. He does not take any medications routinely. He denies smoking but he drinks whiskey and beer daily Allergies and Home Medications Allergies Coded Allergies: No Known Drug Allergies (Unverified , 03/03/21) Patient Home Medication List Home Medication List Reviewed: Yes Oseltamivir Phosphate (Tamiflu) 75 Mg Cap, 75 MG PO BID Prescribed by: FELIPE MCCARTHY on 03/05/21 1153 Review of Systems Review of Systems Constitutional: No chills, No diaphoresis EENTM: No ear discharge, No ear pain Respiratory: No cough, No short of breath Cardiovascular: No chest pain, No edema Gastrointestinal: No abdominal pain, No nausea, No vomiting Genitourinary: denies discharge, denies dysuria Musculoskeletal: No back pain, No joint pain All Other Systemes Reviewed Negative Unless Noted: Yes Past Fshmqrl-Rotbto-Rldpoj Hx Patient Social History Tobacco Use?: No Use of E-Cig and/or Vaping dev: No Substance use?: No Alcohol Use?: Yes Alcohol type: Beer, Hard Liquor Alcohol Frequency: Daily Pt feels they are or have been: No Immunizations Up To Date First/Initial COVID19 Vaccinat: 05/2020 J+J Second COVID19 Vaccination Ramez: 05/2020 J+J Third COVID19 Vaccination Date: 05/2020 J+J Past Medical History Surgery/Hospitalization HX: HTN, Morbid Obesity Orthopedic Family Medical History No Pertinent Family Hx Physical Exam Vital Signs Vital Signs - First Documented 07/28/21 08:12 Temp 35.4 Pulse 101 Resp 18 B/P (MAP) 166/90 (115) Pulse Ox 100 O2 Delivery Room Air Capillary Refill : Less Than 3 Seconds Height, Weight, BMI Height: '" Weight: lbs. oz. kg; 50.00 BMI Method: General Appearance: WD/WN, no apparent distress HEENT: PERRL/EOMI, pharynx normal Neck: full range of motion, normal inspection Cardiovascular: normal peripheral pulses, regular rate, rhythm Respiratory: no respiratory distress, no accessory muscle use Gastrointestinal: non tender, soft Male: testicular tenderness (Right side without significant swelling or erythema or discoloration of the scrotum.), other (Small amount of white mucus at the tip of the distal urethra but no mass lesion or nodule.) Extremities: normal range of motion, non-tender, normal capillary refill, swelling (Trace pedal edema left greater than right without calf tenderness or nodules. No erythema) Neurologic/Psychiatric: alert; No normal mood/affect (Anxious affect); oriented x 3 Skin: normal color, warm/dry Progress/Results/Core Measures Suspected Sepsis SIRS Temperature: Pulse: 101 Respiratory Rate: 18 Laboratory Tests 07/28/21 08:50: White Blood Count 9.6 Blood Pressure 166 /90 Mean: 115 Laboratory Tests 07/28/21 08:50: Creatinine 1.08, Platelet Count 209, Total Bilirubin 0.7 Results/Orders Lab Results Laboratory Tests Test 07/28/21 08:35 07/28/21 08:50 Range/Units Urine Color YELLOW Urine Clarity TURBID Urine pH 6.0 5-9 Urine Specific [place] 1.025 H 1.016-1.022 Urine Protein TRACE H NEGATIVE Urine Glucose (UA) NEGATIVE NEGATIVE Urine Ketones NEGATIVE NEGATIVE Urine Nitrite NEGATIVE NEGATIVE Urine Bilirubin NEGATIVE NEGATIVE Urine Urobilinogen 0.2 < = 1.0 MG/DL Urine Leukocyte Esterase NEGATIVE NEGATIVE Urine RBC (Auto) 3+ H NEGATIVE Urine RBC TNTC H /HPF Urine WBC RARE /HPF Urine Squamous Epithelial Cells 0-2 /HPF Urine Crystals PRESENT H /LPF Urine Uric Acid Crystals LARGE H /LPF Urine Bacteria NEGATIVE /HPF Urine Casts NONE /LPF Urine Mucus SMALL H /LPF Urine Culture Indicated NO White Blood Count 9.6 4.3-11.0 10^3/uL Red Blood Count 4.71 4.30-5.52 10^6/uL Hemoglobin 14.9 13.3-17.7 g/dL Hematocrit 44 40-54 % Mean Corpuscular Volume 94 80-99 fL Mean Corpuscular Hemoglobin 32 25-34 pg Mean Corpuscular Hemoglobin Concent 34 32-36 g/dL Red Cell Distribution Width 14.3 10.0-14.5 % Platelet Count 209 130-400 10^3/uL Mean Platelet Volume 9.1 9.0-12.2 fL Immature Granulocyte % (Auto) 0 % Neutrophils (%) (Auto) 84 H 42-75 % Lymphocytes (%) (Auto) 10 L 12-44 % Monocytes (%) (Auto) 5 0-12 % Eosinophils (%) (Auto) 0 0-10 % Basophils (%) (Auto) 0 0-10 % Neutrophils # (Auto) 8.1 H 1.8-7.8 10^3/uL Lymphocytes # (Auto) 1.0 1.0-4.0 10^3/uL Monocytes # (Auto) 0.4 0.0-1.0 10^3/uL Eosinophils # (Auto) 0.0 0.0-0.3 10^3/uL Basophils # (Auto) 0.0 0.0-0.1 10^3/uL Immature Granulocyte # (Auto) 0.0 0.0-0.1 10^3/uL Sodium Level 141 135-145 MMOL/L Potassium Level 4.3 3.6-5.0 MMOL/L Chloride Level 104 98-107 MMOL/L Carbon Dioxide Level 21 21-32 MMOL/L Anion Gap 16 H 5-14 MMOL/L Blood Urea Nitrogen 19 H 7-18 MG/DL Creatinine 1.08 0.60-1.30 MG/DL Estimat Glomerular Filtration Rate 83 BUN/Creatinine Ratio 18 Glucose Level 159 H 70-105 MG/DL Calcium Level 9.2 8.5-10.1 MG/DL Corrected Calcium 8.9 8.5-10.1 MG/DL Total Bilirubin 0.7 0.1-1.0 MG/DL Aspartate Amino Transf (AST/SGOT) 46 H 5-34 U/L Alanine Aminotransferase (ALT/SGPT) 47 0-55 U/L Alkaline Phosphatase 109 40-136 U/L C-Reactive Protein 1.83 H <0.50 MG/DL Total Protein 7.9 6.4-8.2 GM/DL Albumin 4.4 3.2-4.5 GM/DL My Orders Orders - RAUL ORTEGA Ua Culture If Indicated (07/28/21 08:35) Neis Eduardo Dna Urine Test (07/28/21 08:35) Chlamydia Trachomatis Urine (07/28/21 08:35) Ed Iv/Invasive Line Start (07/28/21 08:35) Ns Iv 1000 Ml (Sodium Chloride 0.9%) (07/28/21 08:45) Us Scrotum (Testicle) [id number] (07/28/21 08:35) Ketorolac Injection (Toradol Injection) (07/28/21 08:45) Cbc With Automated Diff (07/28/21 08:35) Comprehensive Metabolic Panel (07/28/21 08:35) Crp Fs (07/28/21 08:35) Ondansetron Injection (Zofran Injectio (07/28/21 08:45) Ct Abdomen/Pelvis Wo (07/28/21 09:22) Ceftriaxone 1 Gm Pre-Mix (Rocephin 1 Gm (07/28/21 09:30) Medications Given in ED Current Medications Medications Dose Ordered Sig/Bertram Route Start Time Stop Time Status Last Admin Dose Admin Ceftriaxone Sodium/Dextrose 50 ml @ 100 mls/hr ONCE ONCE IV 07/28/21 09:30 07/28/21 09:59 DC 07/28/21 09:31 100 MLS/HR Ketorolac Tromethamine 30 mg ONCE ONCE IVP 07/28/21 08:45 07/28/21 08:46 DC 07/28/21 08:49 30 MG Ondansetron HCl 8 mg ONCE ONCE IVP 07/28/21 08:45 07/28/21 08:46 DC 07/28/21 08:49 8 MG Sodium Chloride 1,000 ml @ 0 mls/hr Q0M ONCE IV 07/28/21 08:45 07/28/21 08:46 DC 07/28/21 08:49 1,000 MLS/HR Vital Signs/I&O 07/28/21 08:12 Temp 35.4 Pulse 101 Resp 18 B/P (MAP) 166/90 (115) Pulse Ox 100 O2 Delivery Room Air Capillary Refill : Less Than 3 Seconds Blood Pressure Mean: 115 Progress Note #1: Time: 08:44 Progress Note Pain medicine, Toradol, ondansetron for nausea and a liter of fluids. He does have some tachycardia if he has white count and he would be septic. Considering torsion versus orchitis versus other. Swelling in his leg seems to been going on for several months and is unlikely to be related to DVT based on examination. He says he is thirsty so we will give him IV fluids and keep him n.p.o. until we know he does not have a surgical emergency. Ultrasound. Progress Note #2: Time: 09:25 Progress Note Patient was resting comfortably, nearly asleep when I walked back in the room so his pain seems to be under better control. He has a lot of blood in his urine so a tumor or stone could be present. He is not having any flank pain but we will get a get a CT without IV contrast to look for stones. A gram of Rocephin IV would be adequate for urinary coverage for infection. Prostatitis is another possibility. Diagnostic Imaging Diagonstic Imaging: Ultrasound Plain Films/CT/US/NM/MRI: other (Scrotum) Comments NAME: DEYANIRA LOMAS [facility] REC#: [id number] PT STATUS: REG ER : 1970 PHYSICIAN: RAUL ORTEGA MD ADMIT DATE: 07/28/21/ER FS Draft Date of Exam:07/28/21 US SCROTUM (TESTICLE) [id number] INDICATION: Right testicular pain x2 hours TECHNIQUE: Real-time grayscale sonographic imaging and color vascular evaluation of the scrotum. CORRELATION STUDY: None FINDINGS: RIGHT TESTICLE: 4.5 x 3.0 x 2.2 cm. LEFT TESTICLE: 4.9 x 2.0 x 2.1 cm. The testicles are in normal location and demonstrate homogeneous echotexture. There is vascular flow to the testicles. The epididymides appear unremarkable. IMPRESSION: 1. Unremarkable scrotal ultrasound examination. Dictated on workstation # [id number] Dict: 07/28/21922 Trans: 07/28/21 0923 DO [id number] Interpreted by: NURIS VADLEZ DO Electronically signed by: Reviewed: Reviewed by Me Diagonstic Imaging: CT Plain Films/CT/US/NM/MRI: abdomen, pelvis Comments [facility] [place] NAME: DEYANIRA LOMAS [facility] REC#: [id number] PT STATUS: REG ER : 1970 PHYSICIAN: RAUL ORTEGA MD ADMIT DATE: 07/28/21/ER FS Draft Date of Exam:07/28/21 CT ABDOMEN/PELVIS WO PROCEDURE: CT abdomen and pelvis without contrast. TECHNIQUE: Multiple contiguous axial images were obtained through the abdomen and pelvis without the use of intravenous contrast. Auto Exposure Controls were utilized during the CT exam to meet ALARA standards for radiation dose reduction. INDICATION: Hematuria with right-sided flank and scrotal pain. I have no previous for comparison. This patient has mild right-sided hydroureteronephrosis. There is also some edematous stranding of the right perinephric and periureteric space. Right renal parenchyma is relatively hypodense compared to the left likely owing to some parenchymal edema. There were, however, no radiopaque urinary tract calculi. No stone along the course of the right ureter and the urinary bladder itself appeared unremarkable. The pattern is suspicious for recently passed stone; correlate clinically. The unobstructed left kidney appeared normal and was without stone. Prostate and seminal vesicles unremarkable. The air-containing appendix is normal. There is no small or large bowel obstruction. There is fatty infiltration of the liver with no bile duct dilatation. The gallbladder and pancreas negative. Spleen and adrenals unremarkable. The aorta is nonaneurysmal. IMPRESSION: 1. Right-sided renal edema, perinephric and periureteric stranding with very mild right hydroureteronephrosis but no radiopaque urinary tract stone. Correlate clinically for recently passed calculus. 2. Normal appendix. Hepatic steatosis. No acute biliary or pancreatic pathology. Dictated on workstation # [id number] Dict: 07/28/2153 Trans: 07/28/21 1002 [facility] [id number] Interpreted by: VIET HENRIQUEZ Electronically signed by: Reviewed: Reviewed by Me Departure Impression Primary Impression: Ureteral calculus, right Disposition: 01 HOME, SELF-CARE Condition: Stable Departure-Patient Inst. Decision time for Depature: 10:48 Referrals: NO,LOCAL PHYSICIAN (PCP/Family) Primary Care Physician Patient Instructions: Kidney Stones (DC) Add. Discharge Instructions: I believe you just passed a kidney stone and we could not see it on the CT but we could see secondary signs that it was there. Drink lots of fluids and the pain should get better in a day or 2. If however if persisting into next week then call the urologist, Dr. Carrizales and request follow-up. Follow-up with a primary care doctor to discuss your leg swelling. If you are having pain use Tylenol 1000 mg every 8 hours as needed for pain. Ibuprofen 800 mg every 8 hours needed for pain. Hydrocodone 1 tablet every 6 hours as needed for severe breakthrough pain. Ondansetron 1 tablet under the tongue every 6 hours as needed for nausea and/or vomiting. Keflex 1 capsule twice a day for a week. All discharge instructions reviewed with patient and/or family. Voiced understanding. Scripts Hydrocodone/Acetaminophen (Hydrocodone-Acetamin 5-325 mg) 5 Mg-325 Mg Tablet 1 TAB PO Q6H PRN for PAIN-MODERATE (5-7), #8 TAB 0 Refills Prov: RAUL ORTEGA 07/28/21 Ondansetron (Ondansetron Odt) 4 Mg Tab.rapdis 4 MG PO Q6H PRN for NAUSEA/VOMITING, #8 TAB 0 Refills Prov: RAUL ORTEGA 07/28/21 Cephalexin (Cephalexin) 500 Mg Tablet 500 MG PO BID for 7 Days, #14 TAB 0 Refills Prov: RAUL ORTEGA 07/28/21 RAUL ORTEGA July 28, 2021 08:45
[2021-07-28 08:54] LABS: BACTERIA,URINE NEGATIVE /HPF; RBC,URINE TNTC /HPF; WBC,URINE RARE /HPF
[2021-07-28 08:55] LABS: SQUAMOUS EPITHELIAL CELL,UR 0-2 /HPF; URIC ACID CRYSTALS,URINE LARGE /LPF
[2021-07-28 08:58] LABS: BASOPHILS % (AUTO) 0 % (0-10); EOSINOPHILS % (AUTO) 0 % (0-10); HEMATOCRIT 44 % (40-54); HEMOGLOBIN 14.9 g/dL (13.3-17.7); LYMPHOCYTES % (AUTO) 10 % (12-44); MEAN CORPUSCULAR HEMOGLOBIN 32 pg (25-34); MEAN CORPUSCULAR HGB CONC 34 g/dL (32-36); MEAN CORPUSCULAR VOLUME 94 fL (80-99); MEAN PLATELET VOLUME 9.1 fL (9.0-12.2); MONOCYTES # (AUTO) 0.4 10^3/uL (0.0-1.0); MONOCYTES % (AUTO) 5 % (0-12); NEUTROPHILS # (AUTO) 8.1 10^3/uL (1.8-7.8); NEUTROPHILS % (AUTO) 84 % (42-75); PLATELET COUNT 209 10^3/uL (130-400); WHITE BLOOD COUNT 9.6 10^3/uL (4.3-11.0)
[2021-07-28 09:24] LABS: BILIRUBIN,TOTAL 0.7 MG/DL (0.1-1.0); CALCIUM 9.2 MG/DL (8.5-10.1); CREATININE SERUM 1.08 MG/DL (0.60-1.30); POTASSIUM 4.3 MMOL/L (3.6-5.0)
--- NOTE | 2021-07-28 09:24 | Diagnostic Imaging Report ---
INDICATION: Right testicular pain x2 hours TECHNIQUE: Real-time grayscale sonographic imaging and color vascular evaluation of the scrotum. CORRELATION STUDY: None FINDINGS: RIGHT TESTICLE: 4.5 x 3.0 x 2.2 cm. LEFT TESTICLE: 4.9 x 2.0 x 2.1 cm. The testicles are in normal location and demonstrate homogeneous echotexture. There is vascular flow to the testicles. The epididymides appear unremarkable. IMPRESSION: 1. Unremarkable scrotal ultrasound examination. Dictated by: Dictated on workstation # [id number]
[2021-07-28 09:25] LABS: ALBUMIN 4.4 GM/DL (3.2-4.5); TOTAL PROTEIN 7.9 GM/DL (6.4-8.2)
[2021-07-28] MEDS ORDERED: cefTRIAXone 1 GM PRE-MIX 50 ML IV ONE (09:30)
--- NOTE | 2021-07-28 10:03 | Diagnostic Imaging Report ---
PROCEDURE: CT abdomen and pelvis without contrast. TECHNIQUE: Multiple contiguous axial images were obtained through the abdomen and pelvis without the use of intravenous contrast. Auto Exposure Controls were utilized during the CT exam to meet ALARA standards for radiation dose reduction. INDICATION: Hematuria with right-sided flank and scrotal pain. I have no previous for comparison. This patient has mild right-sided hydroureteronephrosis. There is also some edematous stranding of the right perinephric and periureteric space. Right renal parenchyma is relatively hypodense compared to the left likely owing to some parenchymal edema. There were, however, no radiopaque urinary tract calculi. No stone along the course of the right ureter and the urinary bladder itself appeared unremarkable. The pattern is suspicious for recently passed stone; correlate clinically. The unobstructed left kidney appeared normal and was without stone. Prostate and seminal vesicles unremarkable. The air-containing appendix is normal. There is no small or large bowel obstruction. There is fatty infiltration of the liver with no bile duct dilatation. The gallbladder and pancreas negative. Spleen and adrenals unremarkable. The aorta is nonaneurysmal. IMPRESSION: 1. Right-sided renal edema, perinephric and periureteric stranding with very mild right hydroureteronephrosis but no radiopaque urinary tract stone. Correlate clinically for recently passed calculus. 2. Normal appendix. Hepatic steatosis. No acute biliary or pancreatic pathology. Dictated by: Dictated on workstation # [id number]
[2021-07-28] MEDS ORDERED: CEPH500T PO (10:50)
[2021-07-28] MEDS ORDERED: ONDA4TAB11 PO (10:50)
[2021-07-28] MEDS ORDERED: ACHD5005 PO (10:50)
[2021-07-28 11:08] VITALS: BP 142/88
== END 2021-07-28 11:08 | disposition home or self-care (01) ==
LOC: EDUNIT# 08:06 → ER FS 08:08
DX: N13.2 Hydronephrosis with renal and ureteral calculous obstruction (principal); E66.01 Morbid (severe) obesity due to excess calories
CPT/HCPCS: 36415; 74176; 76870; 80053; 81000; 85025; 86141; 87491; 87591

== ENCOUNTER → 2022-08-29 | Outpatient (CLI) | payer MEDICARE, MEDICAID ==
[~2022-08-29] MED LIST changes: +ACHD5005 PO; +CEPH500T PO; +ONDA4TAB11 PO; +RT-ALBUTEROL SULF 2.5 MG/3 ML PRE-MIX VIAL INH ONE
== END ==
LOC: RT 10:25
PROVIDERS: ATTEND Nurse Practitioner Family
DX: R06.09 Other forms of dyspnea (principal)
CPT/HCPCS: 94060; 94726; 94729

== ENCOUNTER 2022-12-05 07:49 | Emergency (ER) | payer MEDICARE, MEDICAID ==
[~2022-12-05] VITALS: Ht 172.7 cm; Wt 158.8 kg
[~2022-12-05 07:49] MED LIST changes: -RT-ALBUTEROL SULF 2.5 MG/3 ML PRE-MIX VIAL INH ONE
[2022-12-05] MEDS ORDERED: KETOROLAC INJ 15 MG/ML VIAL IVP STA ×2 (08:00→09:12)
[2022-12-05] MEDS ORDERED: NS IV 1000 ML 1,000 ML IV STA (08:00)
--- NOTE | 2022-12-05 08:06 | ED Abdominal Pain ---
General Stated Complaint: KIDNEY STONE Source of Information: Patient History of Present Illness Date Seen by Provider: Dec 05, 2022 Time Seen by Provider: 07:52 Initial Comments 51-year-old male presenting with complaints of right flank pain since Monday. He does have history of kidney stones and states this feels similar. He has noticed blood in his urine since Monday. The pain did not start until over the weekend. He rates his pain an 8 out of 10 currently. He has not taken anything for the pain. He states that he follows with [facility] clinic. He has a history of diabetes and COPD as well as kidney stones. Denies having fever, chills, nausea, vomiting, diarrhea, change in bowels. Timing/Duration: 3-4 Days Severity/Quality: Severe, Sharp Location: Flank (Right) Activities at Onset: None Modifying Factors: Worsens With Urinating Associated Symptoms: No Back Pain, No Chest Pain, No Diaphoresis, No Fever/Chills, No Fatigue, No Headache, No Heartburn, No Nausea/Vomiting, No Rash, No Shortness of Air, No Swelling/Mass in Abdomen, No Syncope, No Weakness Allergies and Home Medications Allergies Coded Allergies: No Known Drug Allergies (Unverified , 03/03/21) Patient Home Medication List Home Medication List Reviewed: Yes Ciprofloxacin HCl (Ciprofloxacin HCl) 500 Mg Tablet, 500 MG PO BID Prescribed by: EMANUEL OVALLES on 12/05/22 0859 Hydrocodone/Acetaminophen (Hydrocodone-Acetamin 5-325 mg) 5 Mg-325 Mg Tablet, 1 TAB PO Q4H PRN for PAIN SEVERE Prescribed by: EMANUEL OVALLES on 12/05/22 0900 Tamsulosin HCl (Flomax) 0.4 Mg Cap, 0.4 MG PO DAILY Prescribed by: EMANUEL OVALLES on 12/05/22 0859 Discontinued Medications Cephalexin (Cephalexin) 500 Mg Tablet, 500 MG PO BID Prescribed by: RAUL ORTEGA on 07/28/21 1050 Hydrocodone/Acetaminophen (Hydrocodone-Acetamin 5-325 mg) 5 Mg-325 Mg Tablet, 1 TAB PO Q6H PRN for PAIN-MODERATE (5-7) Prescribed by: RAUL ORTEGA on 07/28/21 1051 Ondansetron (Ondansetron Odt) 4 Mg Tab.rapdis, 4 MG PO Q6H PRN for NAUSEA/VOMITING Prescribed by: RAUL ORTEGA on 07/28/21 1050 Oseltamivir Phosphate (Tamiflu) 75 Mg Cap, 75 MG PO BID Prescribed by: FELIPE MCCARTHY on 03/05/21 1153 Review of Systems Review of Systems Constitutional: No chills, No fever EENTM: No Symptoms Reported Respiratory: No Symptoms Reported Cardiovascular: No Symptoms Reported Gastrointestinal: See HPI Genitourinary: See HPI Musculoskeletal: no symptoms reported Skin: no symptoms reported Psychiatric/Neurological: No Symptoms Reported Past Arkeocl-Ylmqvh-Htsnra Hx Patient Social History Tobacco Use?: Yes Tobacco type used: Cigarettes Immunizations Up To Date First/Initial COVID19 Vaccinat: 05/2020 J+J Second COVID19 Vaccination Ramez: 05/2020 J+J Third COVID19 Vaccination Date: 05/2020 J+J Past Medical History Surgery/Hospitalization HX: HTN, Morbid Obesity, COPD, diabetes Surgeries: Yes Orthopedic Respiratory: Yes Asthma, COPD Cardiac: Yes Hypertension Genitourinary: Yes Kidney Stones Endocrine: Yes Diabetes, Non-Insulin dep Family Medical History No Pertinent Family Hx Physical Exam Vital Signs Vital Signs - First Documented 12/05/22 07:54 Temp 36.5 Pulse 91 Resp 19 B/P (MAP) 167/83 (111) O2 Delivery Room Air Capillary Refill : Height/Weight/BMI Height: '" Weight: lbs. oz. kg; 50.00 BMI Method: General Appearance: no apparent distress, obese Respiratory: chest non-tender, lungs clear, normal breath sounds Cardiovascular: normal peripheral pulses, regular rate, rhythm Gastrointestinal: normal bowel sounds, soft, no pulsatile mass; No distended, No guarding, No rebound; tenderness (right flank) Rectal: deferred Extremities: normal range of motion, non-tender, normal capillary refill Back: no CVA tenderness Neurologic/Psychiatric: alert, oriented x 3 Skin: normal color, warm/dry Progress/Results/Core Measures Results/Orders Lab Results Laboratory Tests Test 12/05/22 08:00 Range/Units White Blood Count 8.7 4.3-11.0 10^3/uL Red Blood Count 4.80 4.30-5.52 10^6/uL Hemoglobin 15.6 13.3-17.7 g/dL Hematocrit 49 40-54 % Mean Corpuscular Volume 103 H 80-99 fL Mean Corpuscular Hemoglobin 33 25-34 pg Mean Corpuscular Hemoglobin Concent 32 32-36 g/dL Red Cell Distribution Width 14.0 10.0-14.5 % Platelet Count 244 130-400 10^3/uL Mean Platelet Volume 9.3 9.0-12.2 fL Immature Granulocyte % (Auto) 1 % Neutrophils (%) (Auto) 73 42-75 % Lymphocytes (%) (Auto) 20 12-44 % Monocytes (%) (Auto) 5 0-12 % Eosinophils (%) (Auto) 1 0-10 % Basophils (%) (Auto) 1 0-10 % Neutrophils # (Auto) 6.4 1.8-7.8 10^3/uL Lymphocytes # (Auto) 1.7 1.0-4.0 10^3/uL Monocytes # (Auto) 0.5 0.0-1.0 10^3/uL Eosinophils # (Auto) 0.1 0.0-0.3 10^3/uL Basophils # (Auto) 0.1 0.0-0.1 10^3/uL Immature Granulocyte # (Auto) 0.0 0.0-0.1 10^3/uL Percent Immature Platelet Fraction 2.5 0.0-7.6 % Urine Color RED H Urine Clarity TURBID Urine pH 5.5 5-9 Urine Specific [place] 1.025 H 1.016-1.022 Urine Protein 1+ H NEGATIVE Urine Glucose (UA) NEGATIVE NEGATIVE Urine Ketones NEGATIVE NEGATIVE Urine Nitrite NEGATIVE NEGATIVE Urine Bilirubin NEGATIVE NEGATIVE Urine Urobilinogen 2.0 < = 1.0 MG/DL Urine Leukocyte Esterase TRACE H NEGATIVE Urine RBC (Auto) 3+ H NEGATIVE Urine RBC TNTC H /HPF Urine WBC 2-5 /HPF Urine Squamous Epithelial Cells RARE /HPF Urine Crystals NONE /LPF Urine Bacteria FEW H /HPF Urine Casts NONE /LPF Urine Mucus SMALL H /LPF Urine Culture Indicated YES Sodium Level 134 L 135-145 MMOL/L Potassium Level 4.6 3.6-5.0 MMOL/L Chloride Level 98 98-107 MMOL/L Carbon Dioxide Level 22 21-32 MMOL/L Anion Gap 14 5-14 MMOL/L Blood Urea Nitrogen 6 L 7-18 MG/DL Creatinine 0.74 0.60-1.30 MG/DL Estimat Glomerular Filtration Rate 108 BUN/Creatinine Ratio 8 Glucose Level 144 H 70-105 MG/DL Calcium Level 9.3 8.5-10.1 MG/DL Corrected Calcium 9.5 8.5-10.1 MG/DL Total Bilirubin 1.5 H 0.1-1.0 MG/DL Aspartate Amino Transf (AST/SGOT) 66 H 5-34 U/L Alanine Aminotransferase (ALT/SGPT) 43 0-55 U/L Alkaline Phosphatase 135 40-136 U/L Total Protein 8.0 6.4-8.2 GM/DL Albumin 3.7 3.2-4.5 GM/DL Lipase 35 8-78 U/L My Orders Orders - EMANUEL OVALLES MD Comprehensive Metabolic Panel (12/05/22 07:59) Lipase (12/05/22 07:59) Ua Culture If Indicated (12/05/22 07:59) Ed Iv/Invasive Line Start (12/05/22 07:59) Cbc With Automated Diff (12/05/22 07:59) Ct Abdomen/Pelvis Wo (12/05/22 07:59) Ketorolac Injection (Ketorolac Injection (12/05/22 08:00) Ns Iv 1000 Ml (Ns Iv 1000 Ml) (12/05/22 08:00) Urine Culture (12/05/22 08:00) Strain Urine (12/05/22 09:01) Tamsulosin Capsule (Flomax Capsule) (12/05/22 09:01) Ketorolac Injection (Ketorolac Injection (12/05/22 09:12) Vital Signs/I&O 12/05/22 07:54 Temp 36.5 Pulse 91 Resp 19 B/P (MAP) 167/83 (111) O2 Delivery Room Air Progress Progress Note #1: Progress Note Differential diagnosis includes kidney stones, colitis, diverticulitis, pancreatitis, cystitis, pyelonephritis, appendicitis. Establish peripheral IV access and send labs for complete blood count, comprehensive metabolic profile, lipase and send urinalysis. Normal saline 1 L IV fluid bolus for hydration, Toradol 15 mg IV for pain and inflammation. CT scan of the abdomen and pelvis without IV contrast to look for pathology causing his symptoms. Progress Note #2: Time: 08:44 Progress Note Complete blood count does not show elevated white blood cell count as it was normal at 8.7. Hemoglobin normal at 15.6. Comprehensive metabolic profile did not show any acute electrolyte abnormality. He had mild elevation of his glucose to 144. Lipase was negative at 35. His urinalysis had concentration with a specific gravity of 1.025. There were 3+ red blood cells and 2-5 white blood cells. Few bacteria with trace leukocyte esterase. A culture was reflexed. On my personal review and interpretation of the CT scan of the abdomen pelvis without IV contrast that appeared to be a 3 to 4 mm kidney stone in the distal right ureter with some mild to moderate hydroureter and hydronephrosis with stranding. Since he does have a few bacteria present on the urinalysis will prescribe a few days of ciprofloxacin to help with trying to treat for possible UTI. Have him strain his urine to see when the kidney stone passes. Provided information for Dr. Moore with urology out of [facility]. Counseled on return and follow-up precautions. Advised to push fluids and rest. For severe pain we will prescribe opiate after reviewing the [place] prescription monitoring program for the patient. When reviewing results with the patient he reports his pain is 5.5 out of 10. Will repeat the Ketorolac 15 mg IV to try and help with pain and also give a dose of Flomax here in ED. Sent prescription for Hydrocodone/APAP 5/325 1 every 4 hours prn severe pain x 3 days to [facility] along with Ciprofloxacin 500 mg BID x 3 days and Flomax 0.4 mg po daily x 5 days. Counseled to strain urine and he asked about diet changes so advised to try and catch the stone and the clinic or urologist could see about analyzing the stone to see if he could change diet to help prevent more stones from forming. Diagnostic Imaging Diagonstic Imaging: CT Plain Films/CT/US/NM/MRI: abdomen, pelvis Comments NAME: DEYANIRA LOMAS [facility] REC#: [id number] PT STATUS: REG ER : 1970 PHYSICIAN: EMANUEL OVALLES MD ADMIT DATE: 12/05/22/ER FS Draft Date of Exam:12/05/22 CT ABDOMEN/PELVIS WO PROCEDURE: CT abdomen and pelvis without contrast. TECHNIQUE: Multiple contiguous axial images were obtained through the abdomen and pelvis without the use of intravenous contrast. Auto Exposure Controls were utilized during the CT exam to meet ALARA standards for radiation dose reduction. INDICATION: Right flank pain and hematuria. Comparison is made with prior CT from 07/28/2021. The lung bases are clear. There is diffuse low-attenuation throughout the liver consistent with hepatic steatosis. No liver mass is identified. Gallbladder is unremarkable. There is no biliary duct dilatation. The pancreas and spleen are unremarkable. No adrenal mass is identified. No renal calculi are identified. There is a 3 mm calculus in the distal right ureter just above the UVJ producing moderate hydroureteronephrosis. Left ureter is unremarkable. Aorta is calcified but nonaneurysmal. Small and large bowel loops are normal in caliber. There is no ascites. Prostate is unremarkable. There is a small fat-containing left inguinal hernia. IMPRESSION: 1. Hepatic steatosis. 2. A 3 mm distal right ureteric calculus producing moderate hydroureteronephrosis. Dictated on workstation # [id number] Dict: 12/05/22 0843 Trans: 12/05/22 0854 [facility] [id number] Interpreted by: AMY MARTÍNEZ MD Electronically signed by: Reviewed: Reviewed by Me Departure Impression Primary Impression: Calculus of distal right ureter Additional Impressions: Acute right flank pain Renal colic on right side Bacteriuria Disposition: HOME, SELF-CARE Condition: Improved Departure-Patient Inst. Decision time for Depature: 09:00 Referrals: [facility] [place] (PCP/Family) Primary Care Physician Patient Instructions: Flank Pain ED, How to Strain Your Urine, Kidney Stone Diet, Kidney Stone, Adult ED, Opioids for Short-Term Treatment of Pain ED Add. Discharge Instructions: Try to stay well-hydrated and drink plenty of water and electrolyte drinks. Avoid carbonated and caffeinated drinks as they could dehydrate you and contribute to more kidney stones. For severe pain use the narcotic pain pill. This can cause constipation so consider taking a laxative such as MiraLAX to help prevent that. Take the antibiotic for the next few days to help clear the bacteria seen in the urine. Strain your urine so that you could see when the kidney stone passes. This may look like a tiny grain of sand or little arline of pepper. If you are having continued pain and problems and symptoms or not improving then follow-up with urology. Dr. Moore is with the [facility] and does see patients here in [place]. His office number is [phone]. Otherwise follow-up with the primary care provider for continued concerns. If you are having uncontrolled pain despite the narcotic, uncontrolled vomiting, fever over 101 Fahrenheit these would all be reasons to be seen again as you could have obstruction that would require you to go to a hospital where urology services are available. Scripts Tamsulosin HCl (Flomax) 0.4 Mg Cap 0.4 MG PO DAILY for renal colic for 5 Days, #5 CAP 0 Refills Prov: EMANUEL OVALLES MD 12/05/22 Hydrocodone/Acetaminophen (Hydrocodone-Acetamin 5-325 mg) 5 Mg-325 Mg Tablet 1 TAB PO Q4H PRN for PAIN SEVERE for 3 Days, #18 TAB 0 Refills Prov: EMANUEL OVALLES MD 12/05/22 Ciprofloxacin HCl (Ciprofloxacin HCl) 500 Mg Tablet 500 MG PO BID for Bacteria in Urine for 3 Days, #6 TAB 0 Refills Prov: EMANUEL OVALLES MD 12/05/22 EMANUEL OVALLES MD Dec 05, 2022 08:06
[2022-12-05 08:12] LABS: BILIRUBIN,URINE NEGATIVE (NEGATIVE); CLARITY,URINE TURBID; GLUCOSE, URINE (UA) NEGATIVE (NEGATIVE); KETONES,URINE NEGATIVE (NEGATIVE); LEUKOCYTE ESTERASE ,URINE TRACE (NEGATIVE); NITRITE,URINE NEGATIVE (NEGATIVE); PH,URINE 5.5 (5-9); PROTEIN,URINE 1+ (NEGATIVE)
[2022-12-05 08:20] LABS: BACTERIA,URINE FEW /HPF; COLOR,URINE RED; RBC,URINE TNTC /HPF; SQUAMOUS EPITHELIAL CELL,UR RARE /HPF
[2022-12-05 08:37] LABS: BASOPHILS # (AUTO) 0.1 10^3/uL (0.0-0.1); BASOPHILS % (AUTO) 1 % (0-10); EOSINOPHILS # (AUTO) 0.1 10^3/uL (0.0-0.3); EOSINOPHILS % (AUTO) 1 % (0-10); HEMATOCRIT 49 % (40-54); HEMOGLOBIN 15.6 g/dL (13.3-17.7); LYMPHOCYTES # (AUTO) 1.7 10^3/uL (1.0-4.0); LYMPHOCYTES % (AUTO) 20 % (12-44); MEAN CORPUSCULAR HEMOGLOBIN 33 pg (25-34); MEAN CORPUSCULAR HGB CONC 32 g/dL (32-36); MEAN CORPUSCULAR VOLUME 103 fL (80-99); MEAN PLATELET VOLUME 9.3 fL (9.0-12.2); MONOCYTES # (AUTO) 0.5 10^3/uL (0.0-1.0); MONOCYTES % (AUTO) 5 % (0-12); NEUTROPHILS # (AUTO) 6.4 10^3/uL (1.8-7.8); NEUTROPHILS % (AUTO) 73 % (42-75); PLATELET COUNT 244 10^3/uL (130-400); WHITE BLOOD COUNT 8.7 10^3/uL (4.3-11.0)
[2022-12-05 08:40] LABS: POTASSIUM 4.6 MMOL/L (3.6-5.0)
[2022-12-05 08:41] LABS: ALBUMIN 3.7 GM/DL (3.2-4.5); BILIRUBIN,TOTAL 1.5 MG/DL (0.1-1.0); CALCIUM 9.3 MG/DL (8.5-10.1); CREATININE SERUM 0.74 MG/DL (0.60-1.30)
--- NOTE | 2022-12-05 08:54 | Diagnostic Imaging Report ---
PROCEDURE: CT abdomen and pelvis without contrast. TECHNIQUE: Multiple contiguous axial images were obtained through the abdomen and pelvis without the use of intravenous contrast. Auto Exposure Controls were utilized during the CT exam to meet ALARA standards for radiation dose reduction. INDICATION: Right flank pain and hematuria. Comparison is made with prior CT from 07/28/2021. The lung bases are clear. There is diffuse low-attenuation throughout the liver consistent with hepatic steatosis. No liver mass is identified. Gallbladder is unremarkable. There is no biliary duct dilatation. The pancreas and spleen are unremarkable. No adrenal mass is identified. No renal calculi are identified. There is a 3 mm calculus in the distal right ureter just above the UVJ producing moderate hydroureteronephrosis. Left ureter is unremarkable. Aorta is calcified but nonaneurysmal. Small and large bowel loops are normal in caliber. There is no ascites. Prostate is unremarkable. There is a small fat-containing left inguinal hernia. IMPRESSION: 1. Hepatic steatosis. 2. A 3 mm distal right ureteric calculus producing moderate hydroureteronephrosis. Dictated by: Dictated on workstation # [id number]
[2022-12-05] MEDS ORDERED: CIPR500T5 PO (08:59)
[2022-12-05] MEDS ORDERED: TMSL.4C PO (08:59)
[2022-12-05] MEDS ORDERED: ACHD5005 PO (08:59)
[2022-12-05] MEDS ORDERED: TAMSULOSIN 0.4 MG (FLOMAX) CAP PO STA (09:01)
[2022-12-05 09:18] VITALS: BP 154/86
== END 2022-12-05 09:18 | disposition home or self-care (01) ==
LOC: EDUNIT# 07:49 → ER FS 07:50
DX: N13.2 Hydronephrosis with renal and ureteral calculous obstruction (principal); R82.71 Bacteriuria; F17.210 Nicotine dependence, cigarettes, uncomplicated; E66.01 Morbid (severe) obesity due to excess calories; E11.9 Type 2 diabetes mellitus without complications; Z68.43 Body mass index [BMI] 50.0-59.9, adult
CPT/HCPCS: 36415; 74176; 80053; 81000; 83690; 85025; 87088